=== PATIENT | male | born 1960 | race Two or more races ===

== ENCOUNTER 2020-07-08 17:51 | Outpatient (CLI) | payer OTHER | END 2020-07-08 17:57 | disposition home or self-care (01) | LOC: LAB 17:51 | PROVIDERS: ATTEND Urology | DX: R97.20 Elevated prostate specific antigen [PSA] (principal) ==

== ENCOUNTER 2020-08-06 07:26 | Outpatient (CLI) | payer OTHER | END 2020-08-06 07:38 | disposition home or self-care (01) | LOC: SONOGRAMA 07:26 | PROVIDERS: ATTEND Urology | DX: C61 Malignant neoplasm of prostate (principal); R97.20 Elevated prostate specific antigen [PSA] ==

== ENCOUNTER 2020-11-24 08:00 | Inpatient (IN) | payer OTHER ==
[~2020-11-24] VITALS: Ht 177.8 cm; Wt 87.1 kg
[2020-11-24] MEDS ORDERED: OMEPRAZOLE20 M2 PO (10:07)
[2020-11-24] MEDS ORDERED: PEPCID AC20 MG PO (10:07)
== END 2020-12-03 10:07 | disposition home or self-care (01) | DRG 707 ==
LOC: SURG 12-01 05:08 → O/R 12-01 05:08 → SURH 12-01 07:00 → SURG 12-01 12:00
PROVIDERS: ADMIT Urology; ATTEND Urology
PROC: 07TC0ZZ Resection of Pelvis Lymphatic, Open Approach (ICD-10-PCS; 2020-12-01)
PROC: 0VT00ZZ Resection of Prostate, Open Approach (ICD-10-PCS; principal; 2020-12-01 07:00)
DX: C61 Malignant neoplasm of prostate (principal); C77.5 Secondary and unspecified malignant neoplasm of intrapelvic lymph nodes; K21.9 Gastro-esophageal reflux disease without esophagitis; Z20.822 Contact with and (suspected) exposure to COVID-19

== ENCOUNTER 2021-11-16 08:09 | Outpatient (CLI) | payer OTHER ==
[~2021-11-16 08:09] MED LIST: OMEPRAZOLE20 M2 PO; PEPCID AC20 MG PO
== END 2021-11-16 08:11 | disposition home or self-care (01) ==
LOC: SONOGRAMA 08:09
PROVIDERS: ATTEND Pathology Anatomic Pathology & Clinical Pathology
DX: R59.0 Localized enlarged lymph nodes (principal)